=== PATIENT | male | born 1960 | race Caucasian/White ===

== ENCOUNTER 2020-12-28 17:08 | Inpatient (IN) | payer OTHER ==
[2020-12-28 17:39] LABS: #Basophils 0.1 10x3/uL (0.0-0.2); #Eosinphils 0.4 10x3/uL (0.0-0.5); #Neutrophils 7.7 10x3/uL (1.5-8.4); %Basophils 0.6 % (0.0-2.0); %Eosinophils 2.8 % (0.0-6.0); %Lymphocytes 31.3 % (18.0-47.0); %Monocytes 7.7 % (0.0-10.0); %Neutrophils 57.1 % (40.0-75.0); Hemoglobin 13.2 g/dL (13.5-17.5); Mean Corpuscular HGB CONC 32.4 g/dL (32.0-36.0); Mean Corpuscular Hemoglobin 27.8 pg (27.0-33.0); Mean Corpuscular Volume 85.9 fl (81.2-95.1); Mean Platelet Volume 9.4 fl (7.4-10.4); Platelet Count 360 10x3/uL (150-450); RBC Distribution Width 13.6 % (11.5-14.5); Red Blood Cell (RBC) Count 4.74 10x6/uL (4.32-5.72); White Blood Cell (WBC) Count 13.4 10x3/uL (3.5-10.5)
[2020-12-28] MEDS ORDERED: Aspirin 325 MG TAB ONE (17:53)
[2020-12-28 17:56] LABS: ALT (SGPT) 51 U/L (8-55); AST (SGOT) 39 U/L (5-34); Albumin 3.9 g/dL (3.4-4.8); Alkaline Phosphatase 88 U/L (40-110); Anion Gap 16 mmol/L (10-20); BUN (Urea Nitrogen) 12 mg/dL (8.4-25.7); Bilirubin, Total 0.2 mg/dL (0.2-1.2); Calc. Creatinine Clearance 0 mL/min (70-130); Calcium 9.1 mg/dL (7.8-10.44); Carbon Dioxide 22 mmol/L (23-31); Chloride 107 mmol/L (98-107); Globulin 3.1 g/dL (2.4-3.5); Glucose 190 mg/dL (80-115); Potassium 4.6 mmol/L (3.5-5.1); Sodium 140 mmol/L (136-145)
[2020-12-28] MEDS ORDERED: Aspirin Chewable 81 MG TAB ONE (21:17)
[2020-12-28] MEDS ORDERED: Nitroglycerin 0.4 MG TAB (25 Tab Bottle) SL PRN (23:35)
[2020-12-29 00:18] LABS: Troponin I 0.023 ng/mL (< 0.028)
[2020-12-29 00:44] VITALS: BMI 40.7
[2020-12-29] MEDS ORDERED: Metoprolol Tartrate 25 MG TAB PO SCH ×2 (01:30→09:00)
[2020-12-29] MEDS: Sodium Chloride 0.9% 1,000 ML IV SCH ×2 (01:46→23:19)
[2020-12-29] MEDS ORDERED: Acetaminophen 325 MG TAB PO PRN (03:50)
[2020-12-29 04:22] LABS: #Basophils 0.1 10x3/uL (0.0-0.2); #Eosinphils 0.5 10x3/uL (0.0-0.5); #Monocytes 1.3 10x3/uL (0.0-1.1); #Neutrophils 10.1 10x3/uL (1.5-8.4); %Basophils 0.7 % (0.0-2.0); %Eosinophils 2.9 % (0.0-6.0); %Lymphocytes 26.6 % (18.0-47.0); %Monocytes 7.9 % (0.0-10.0); %Neutrophils 61.3 % (40.0-75.0); Hemoglobin 12.8 g/dL (13.5-17.5); Mean Corpuscular HGB CONC 32.7 g/dL (32.0-36.0); Mean Corpuscular Hemoglobin 27.5 pg (27.0-33.0); Mean Corpuscular Volume 84.3 fl (81.2-95.1); Mean Platelet Volume 9.2 fl (7.4-10.4); Platelet Count 332 10x3/uL (150-450); RBC Distribution Width 13.8 % (11.5-14.5); Red Blood Cell (RBC) Count 4.65 10x6/uL (4.32-5.72); White Blood Cell (WBC) Count 16.5 10x3/uL (3.5-10.5)
[2020-12-29 04:41] LABS: Anion Gap 14 mmol/L (10-20); BUN (Urea Nitrogen) 14 mg/dL (8.4-25.7); Calc. Creatinine Clearance 116 mL/min (70-130); Carbon Dioxide 25 mmol/L (23-31); Cardiac Risk 5.1 (Less than 4.5); Chloride 104 mmol/L (98-107); Cholesterol 157 mg/dl (< 200 Desired); Glucose 214 mg/dL (80-115); HDL Cholesterol 31 mg/dL (>60 Neg Risk); LDL Cholesterol, Calculated 97 mg/dL; Sodium 139 mmol/L (136-145); Triglycerides 145 mg/dL (Less than 150)
[2020-12-29] MEDS ORDERED: FLU VACC QS2021-22(6MOS UP)/PF 60 MCG/0.5 ML SYRINGE IM ONE (08:00)
[2020-12-29] MEDS ORDERED: Carvedilol 6.25 MG TAB PO SCH ×2 (09:00→17:00)
[2020-12-29] MEDS ORDERED: Enoxaparin Sodium 40 MG/0.4 ML SYRINGE SC SCH (09:00)
[2020-12-29] MEDS ORDERED: Communication Order-Pharmacy FS SCH ×2 (11:15→15:00)
[2020-12-29 11:47] LABS: SARS-CoV-2 PCR by NAA Not Detected (NotDetected)
[2020-12-29] MEDS: Ibuprofen 600 MG TAB PO SCH ×2 (12:02→21:03)
[2020-12-29] MEDS: Aspirin Chewable 81 MG TAB PO SCH (12:03)
[2020-12-29] MEDS: Furosemide 20 MG TAB PO SCH ×2 (12:03→21:03)
[2020-12-29] MEDS: Potassium Chloride 20 MEQ TAB PO SCH (12:03)
[2020-12-29] MEDS: Mometasone 100 MCG/PUFF (1 INHALER) INH SCH ×2 (12:06→21:00)
[2020-12-29 12:53] LABS: Bilirubin Neg (Negative); Blood, Urine 25 (Negative); Clarity Clear (Clear); Glucose, Urine (Dipstick) Normal (Negative); Ketone, Urine Negative (Negative); Leukocyte Negative (Negative); Nitrite Negative (Negative); Protein, Urine (Dipstick) Negative (Neg-Trace); Urobilinogen Normal mg/dL (Less than 2)
[2020-12-29 13:18] LABS: RBC/HPF 0-3 HPF (0-3)
[2020-12-29 13:19] LABS: Bacteria/HPF None Seen HPF (None Seen); Squamous Epithelial 0-3 HPF (0-3); WBC/HPF None Seen HPF (0-3)
[2020-12-29] MEDS ORDERED: Valsartan 80 MG TAB PO SCH (15:15)
[2020-12-29] MEDS: Carvedilol 25 MG TAB PO SCH (17:28)
[2020-12-29] MEDS ORDERED: hydrALAZINE 20 MG/ML VIAL SLOW IVP PRN (18:26)
[2020-12-29] MEDS ORDERED: Dextrose 50% Abboject 50 ML SYRINGE SLOW IVP PRN (18:28)
[2020-12-29] MEDS ORDERED: Dextrose 5% in Water 1,000 ML IV PRN (18:28)
[2020-12-29] MEDS: Terazosin HCl 5 MG CAP PO SCH (21:05)
[2020-12-29] MEDS: Terazosin HCl 1 MG CAP PO SCH (21:05)
[2020-12-29] MEDS: HumaLOG 300 UNITS/3 ML VIAL SC PRN (22:10)
[2020-12-30] MEDS: Valsartan 80 MG TAB PO SCH (05:55)
[2020-12-30] MEDS: Carvedilol 25 MG TAB PO SCH ×2 (05:55→17:10)
[2020-12-30] MEDS: Aspirin Chewable 81 MG TAB PO SCH (05:55)
[2020-12-30] MEDS ORDERED: Heparin 10,000 UNITS/ 10 ML VIAL ONE ×2 (07:40→09:08)
[2020-12-30] MEDS ORDERED: Nitroglycerin 50 MG/250 ML BOT 0 ML ONE (07:40)
[2020-12-30] MEDS ORDERED: Adenosine 6 MG/2 ML VIAL ONE (07:41)
[2020-12-30] MEDS ORDERED: Lidocaine 1% (PF) 30 ML VIAL ONE (07:42)
[2020-12-30] MEDS ORDERED: Midazolam HCl 2 mg/2 ml Vial ONE (08:12)
[2020-12-30] MEDS ORDERED: Fentanyl 100 MCG/2 ML VIAL ONE (08:12)
[2020-12-30] MEDS ORDERED: TICAGRELOR 90 MG TABLET ONE (09:12)
[2020-12-30] MEDS ORDERED: Protamine Sulfate 50 MG/5 ML VIAL ONE (10:07)
[2020-12-30] MEDS: Ibuprofen 600 MG TAB PO SCH ×2 (11:35→21:53)
[2020-12-30] MEDS: Mometasone 100 MCG/PUFF (1 INHALER) INH SCH ×2 (12:42→19:45)
[2020-12-30] MEDS: Potassium Chloride 20 MEQ TAB PO SCH (13:38)
[2020-12-30] MEDS: Furosemide 20 MG TAB PO SCH ×2 (13:38→21:53)
[2020-12-30] MEDS ORDERED: Ondansetron PF 4 MG/2 ML Vial IVP PRN (16:45)
[2020-12-30] MEDS: Sodium Chloride 0.9% 1,000 ML IV SCH ×2 (19:12→23:56)
[2020-12-30] MEDS: Terazosin HCl 1 MG CAP PO SCH (21:52)
[2020-12-30] MEDS: Terazosin HCl 5 MG CAP PO SCH (21:59)
[2020-12-30] MEDS: HumaLOG 300 UNITS/3 ML VIAL SC PRN (22:05)
[2020-12-30] MEDS: TICAGRELOR 90 MG TABLET PO SCH (22:21)
[2020-12-31 05:04] LABS: #Basophils 0.1 10x3/uL (0.0-0.2); #Eosinphils 0.4 10x3/uL (0.0-0.5); #Monocytes 1.4 10x3/uL (0.0-1.1); #Neutrophils 10.6 10x3/uL (1.5-8.4); %Basophils 0.4 % (0.0-2.0); %Eosinophils 2.5 % (0.0-6.0); %Lymphocytes 26.1 % (18.0-47.0); %Monocytes 8.1 % (0.0-10.0); %Neutrophils 62.3 % (40.0-75.0); Hemoglobin 11.4 g/dL (13.5-17.5); Mean Corpuscular HGB CONC 32.7 g/dL (32.0-36.0); Mean Corpuscular Hemoglobin 27.7 pg (27.0-33.0); Mean Corpuscular Volume 84.9 fl (81.2-95.1); Mean Platelet Volume 9.2 fl (7.4-10.4); Platelet Count 328 10x3/uL (150-450); Red Blood Cell (RBC) Count 4.11 10x6/uL (4.32-5.72)
[2020-12-31 05:21] LABS: ALT (SGPT) 25 U/L (8-55); AST (SGOT) 13 U/L (5-34); Albumin 3.3 g/dL (3.4-4.8); Alkaline Phosphatase 62 U/L (40-110); Anion Gap 15 mmol/L (10-20); BUN (Urea Nitrogen) 18 mg/dL (8.4-25.7); Bilirubin, Total 0.4 mg/dL (0.2-1.2); Calc. Creatinine Clearance 98 mL/min (70-130); Calcium 8.3 mg/dL (7.8-10.44); Carbon Dioxide 23 mmol/L (23-31); Chloride 105 mmol/L (98-107); Globulin 2.6 g/dL (2.4-3.5); Glucose 145 mg/dL (80-115); Protein, Total 5.9 g/dL (5.8-8.1); Sodium 139 mmol/L (136-145)
[2020-12-31] MEDS: HumaLOG 300 UNITS/3 ML VIAL SC PRN ×2 (05:50→12:33)
[2020-12-31] MEDS: Sodium Chloride 0.9% 1,000 ML IV SCH (06:22)
[2020-12-31] MEDS: Mometasone 100 MCG/PUFF (1 INHALER) INH SCH (07:32)
[2020-12-31] MEDS: Aspirin Chewable 81 MG TAB PO SCH (08:57)
[2020-12-31] MEDS: Carvedilol 25 MG TAB PO SCH (08:58)
[2020-12-31] MEDS: Ibuprofen 600 MG TAB PO SCH (08:58)
[2020-12-31] MEDS: Potassium Chloride 20 MEQ TAB PO SCH (08:58)
[2020-12-31] MEDS: Valsartan 80 MG TAB PO SCH (08:59)
[2020-12-31] MEDS: TICAGRELOR 90 MG TABLET PO SCH (08:59)
[2020-12-31] MEDS: Furosemide 20 MG TAB PO SCH (08:59)
[2020-12-31 12:50] VITALS: BP 124/67; TEMP 99.2
[2020-12-31] MEDS ORDERED: metFORMIN 500 MG TAB PO SCH (17:00)
== END 2020-12-31 13:42 | DRG 247 ==
LOC: CSHERS 17:08 → INTOOBSV 17:09 → CSHTELE 17:09 → OBSVTOIN 12-31 09:27
PROVIDERS: ADMIT Family Medicine; ATTEND Physician Assistant Medical
PROC: 0T9B70Z Drainage of Bladder with Drainage Device, Via Natural or Artificial Opening (ICD-10-PCS; 2020-12-29)
PROC: 027136Z Dilation of Coronary Artery, Two Arteries with Three Drug-eluting Intraluminal Devices, Percutaneous Approach (ICD-10-PCS; principal; 2020-12-30)
PROC: 4A023N7 Measurement of Cardiac Sampling and Pressure, Left Heart, Percutaneous Approach (ICD-10-PCS; 2020-12-30)
PROC: B241ZZ3 Ultrasonography of Multiple Coronary Arteries, Intravascular (ICD-10-PCS; 2020-12-30)
PROC: B2151ZZ Fluoroscopy of Left Heart using Low Osmolar Contrast (ICD-10-PCS; 2020-12-30)
DX: I47.1 Supraventricular tachycardia (principal); I25.110 Atherosclerotic heart disease of native coronary artery with unstable angina pectoris; Z20.822 Contact with and (suspected) exposure to COVID-19; I10 Essential (primary) hypertension; R07.9 Chest pain, unspecified; J45.20 Mild intermittent asthma, uncomplicated; J44.9 Chronic obstructive pulmonary disease, unspecified; N40.1 Benign prostatic hyperplasia with lower urinary tract symptoms; E11.9 Type 2 diabetes mellitus without complications; R33.8 Other retention of urine; F17.210 Nicotine dependence, cigarettes, uncomplicated; M19.90 Unspecified osteoarthritis, unspecified site; Z98.890 Other specified postprocedural states; Z88.0 Allergy status to penicillin; Z88.2 Allergy status to sulfonamides
CPT/HCPCS: 36415; 36416; 71045; 80048; 80053; 80061; 81003; 81015; 83036; 84443; 84484; 85025; 85347; 92928; 92978; 92979; 93005; 93010; 93458; 94640; 94664; 99152; 99153; C1753; C1760; C1874; C1887; C9600; J0153; J0360; J1644; J1815; J2001; J2250; J2405; J2720; J3010; J7050; J7620; U0003; U0005